=== PATIENT | male | born 1955 | race Caucasian/White ===

== ENCOUNTER 2023-10-03 12:28 | Emergency (ER) | payer MEDICARE, BC ==
[2023-10-03] MEDS: fentaNYL 50 MCG/ML SDV IVPUSH ONE (13:29)
[2023-10-03] MEDS: HYDROmorphone 0.5 MG/0.5 ML Syringe IVPUSH ONE (13:56)
[2023-10-03 14:36] VITALS: BP 124/98; PULSE 73
== END 2023-10-03 13:05 | disposition short-term general hospital (02) ==
LOC: VM.ED 12:28
DX: T84.020A Dislocation of internal right hip prosthesis, initial encounter (principal); E66.9 Obesity, unspecified; Z79.899 Other long term (current) drug therapy; Z86.19 Personal history of other infectious and parasitic diseases; Z86.16 Personal history of COVID-19
CPT/HCPCS: 73501; 99285; J1170; J3010; 99284

== ENCOUNTER 2024-08-25 13:05 | Emergency (ER) | payer MEDICARE, BC ==
[2024-08-25] MEDS ORDERED: Sodium Chloride 0.9% 10 ML Syringe FLUSH PRN (13:21)
[2024-08-25 13:37] LABS: BASOPHILS PERCENT AUTO 0.1 % (0.2-1.2); EOSINOPHILS ABSOLUTE AUTO 0.1 x10^3/uL (0.0-0.5); EOSINOPHILS PERCENT AUTO 0.7 % (0.0-4.0); HEMATOCRIT 40.6 % (40.0-52.0); LYMPHOCYTES ABSOLUTE AUTO 0.7 x10^3/uL (1.0-4.8); LYMPHOCYTES PERCENT AUTO 8.5 % (25.0-50.0); MEAN CORPUSCULAR HEMOGLOBIN 26.2 pg (26.0-32.0); MEAN CORPUSCULAR HGB CONC 29.6 g/dL (32.0-36.0); MEAN CORPUSCULAR VOLUME 88.6 fL (78.0-93.0); MONOCYTES ABSOLUTE AUTO 0.6 x10^3/uL (0.0-0.8); MONOCYTES PERCENT AUTO 7.3 % (2.0-11.0); NEUTROPHILS ABSOLUTE AUTO 6.7 x10^3/uL (1.8-7.7); NEUTROPHILS PERCENT AUTO 82.2 % (50.0-80.0); PLATELET COUNT,PLT 211 x10^3/uL (130-400); RED BLOOD CELL COUNT 4.58 x10^6/uL (4.5-6.0); WHITE BLOOD CELL COUNT,WBC 8.2 x10^3/uL (4.0-10.0)
[2024-08-25 13:59] LABS: A/G RATIO 0.54; ALANINE AMINOTRANSFERASE,ALT 15 U/L (16-63); ALBUMIN 2.5 g/dL (3.4-5.0); ALKALINE PHOSPHATASE 77 U/L (46-116); ASPARTATE AMNIOTRANSFERASE,AST 21 U/L (15-37); BILIRUBIN TOTAL 0.7 mg/dL (0.2-1.0); BLOOD UREA NITROGEN,BUN 11 mg/dL (7-18); C-REACTIVE PROTEIN 4.39 mg/dL (<=0.50); CALCIUM 8.6 mg/dL (8.5-10.1); CARBON DIOXIDE,CO2 35 mmol/L (21-32); CHLORIDE,CL 103 mmol/L (98-107); CREATINE KINASE,CK 116 U/L (39-308); CREATININE 0.8 mg/dL (0.70-1.30); GLUCOSE RANDOM 102 mg/dL (70-99); POTASSIUM,K 3.3 mmol/L (3.5-5.1); PROTEIN TOTAL,TP 7.1 g/dL (6.4-8.2); SODIUM,NA 140 mmol/L (136-145)
[2024-08-25 14:00] LABS: ANION GAP 5.3 mmol/L (5-15)
[2024-08-25 14:01] LABS: ESTIMATED GFR 95 mL/min (>=60)
[2024-08-25] MEDS: Heparin Sodium 5,000 Units/ML Vial IVPUSH ONE (16:46)
[2024-08-25] MEDS: Aspirin 81 MG Tab.Chew PO ONE (16:46)
[2024-08-25] MEDS: Heparin Sodium/0.45% NaCl 25,000 UNITS/250 ML BAG IV SCH (16:47)
[2024-08-25 16:49] LABS: INR 1.1 (0.9-1.1); PROTHROMBIN TIME 11.5 SEC (9.6-12.0)
[2024-08-25 20:07] VITALS: BP 148/86; PULSE 84
== END 2024-08-25 19:26 | disposition short-term general hospital (02) ==
LOC: VM.ED 13:05
DX: I21.4 Non-ST elevation (NSTEMI) myocardial infarction (principal); M25.551 Pain in right hip; Z79.899 Other long term (current) drug therapy; Z86.16 Personal history of COVID-19
CPT/HCPCS: 36415; 71045; 80053; 82550; 83605; 83880; 84484; 85025; 85610; 86140; 87040; 93005; 93010; 96365; 96366; 99284; 99285-25; A9270-GY; J1644